=== PATIENT | male | born 1980 | race Caucasian/White ===

== ENCOUNTER 2021-06-02 08:09 | Outpatient (REF) | payer OTHER, SELFPAY | END 2021-06-02 08:10 | disposition home or self-care (01) | LOC: HO.LAB 08:09 | PROVIDERS: Visit Provider Internal Medicine | DX: Z20.822 Contact with and (suspected) exposure to COVID-19 (principal) | CPT/HCPCS: C9803; U0003; U0005 ==

== ENCOUNTER 2021-09-08 15:00 | Outpatient (REF) | payer OTHER, SELFPAY ==
[2021-09-08 16:12] LABS: COVID-19 Test Negative (Negative)
== END 2021-09-08 15:01 | disposition home or self-care (01) ==
LOC: HO.LAB 15:00
PROVIDERS: Visit Provider Internal Medicine
DX: Z20.822 Contact with and (suspected) exposure to COVID-19 (principal)
CPT/HCPCS: 36415; 87635; C9803